=== PATIENT | male | born 1990 | race Caucasian/White ===

== ENCOUNTER 2018-08-08 13:17 | Emergency (ER) | payer SELFPAY ==
[~2018-08-08] VITALS: Ht 180.3 cm; Wt 77.3 kg
[2018-08-08 13:20] VITALS: BP 140/86; TEMP 97.8
[2018-08-08] MEDS ORDERED: AMOXICILLIN 50500 MG PO (14:51)
[2018-08-08 15:36] VITALS: PULSE 71
== END 2018-08-08 15:39 | disposition home or self-care (01) ==
LOC: COL.ER 13:17
DX: S61.211A Laceration without foreign body of left index finger without damage to nail, initial encounter (principal); S61.213A Laceration without foreign body of left middle finger without damage to nail, initial encounter; W27.0XXA Contact with workbench tool, initial encounter; Y92.59 Other trade areas as the place of occurrence of the external cause; Z88.1 Allergy status to other antibiotic agents

== ENCOUNTER 2018-08-16 08:05 | Outpatient (RCR) | payer OTHER ==
[~2018-08-16 08:05] MED LIST: AMOXICILLIN 50500 MG PO
== END 2018-08-26 09:57 | disposition home or self-care (01) ==
LOC: WSOH 08:05
DX: Z48.02 Encounter for removal of sutures (principal)